=== PATIENT | female | born 1940 | race Caucasian/White ===

== ENCOUNTER 2021-05-28 16:50 | Emergency (ER) | payer MEDICARE ==
--- NOTE | 2021-05-28 17:29 | EDM.PDOC ---
ED HPI GENERAL MEDICAL PROBLEM - General Chief Complaint: Abdominal Pain Stated Complaint: AORTIC Time Seen by Provider: 05/28/21 17:09 Source of Information: Reports: Patient, RN Notes Reviewed History Limitations: Reports: No Limitations - History of Present Illness INITIAL COMMENTS - FREE TEXT/NARRATIVE: 80-year-old female presents emergency department day complaint of epigastric pain, she was initially evaluated by clinic provider Morelia Sanchez who did contact me and was concerned about aortic dissection asked her for her to be evaluated in the emergency department. She states this pain has been ongoing for a month she notices the pain gets worse after she drinks milk she has no nausea no vomiting no back pain no shortness of breath the pain is predominantly in the left upper quadrant area where she notices it more. No history of tobacco use - Related Data Allergies Allergy/AdvReac Type Severity Reaction Status Date / Time KATHRYN Inhibitors Allergy Cough Verified 05/28/21 17:17 codeine Allergy Hives Verified 05/28/21 17:17 Home Meds: Home Meds Amitriptyline [Elavil] 1 tab PO BEDTIME 05/28/21 [History] Ferrous Sulfate [Iron] 1 tab PO DAILY 05/28/21 [History] Magnesium Oxide [Magnesium] 1 tab PO DAILY 05/28/21 [History] Montelukast [Singulair] 1 tab PO BEDTIME 05/28/21 [History] Potassium Gluconate 1 tab PO DAILY 05/28/21 [History] Telmisartan [Micardis] 1 tab PO DAILY 05/28/21 [History] Past Medical History Cardiovascular History: Reports: Hypertension Social & Family History - Tobacco Use Tobacco Use Status *Q: Never Tobacco User ED ROS GENERAL - Review of Systems Review Of Systems: See Below Constitutional: Reports: No Symptoms HEENT: Reports: No Symptoms Respiratory: Reports: No Symptoms Cardiovascular: Reports: No Symptoms GI/Abdominal: Reports: Abdominal Pain. Denies: Constipation, Diarrhea, Nausea, Vomiting ED EXAM, GI/ABD - Physical Exam Exam: See Below Text/Narrative:: Bedside ultrasound performed I did evaluate the aorta is approximately 2.3 cm it is palpable with deep palpation however she is a thin elderly woman. I do not appreciate any significant tenderness to palpation on the abdomen Exam Limited By: No Limitations General Appearance: Alert, WD/WN, No Apparent Distress Respiratory/Chest: No Respiratory Distress, Lungs Clear, Normal Breath Sounds, No Accessory Muscle Use, Chest Non-Tender Cardiovascular: Regular Rate, Rhythm, No Murmur GI/Abdominal Exam: Normal Bowel Sounds, Soft, Non-Tender, No Distention, No Abnormal Bruit Course - Vital Signs Last Recorded V/S: Last Vital Signs Temp 98.6 F 05/28/21 17:12 Pulse 69 05/28/21 17:12 Resp 14 05/28/21 17:12 BP 180/95 H 05/28/21 17:12 Pulse Ox 98 05/28/21 17:12 - Orders/Labs/Meds Labs: Laboratory Tests 05/28/21 05/28/21 05/28/21 Range/Units 17:39 17:39 17:39 WBC 7.0 (4.5-11.0) K/uL RBC 4.25 (3.30-5.50) M/uL Hgb 12.8 (12.0-15.0) g/dL Hct 38.4 (36.0-48.0) % MCV 90 (80-98) fL MCH 30 (27-31) pg MCHC 33 (32-36) % Plt Count 280 (150-400) K/uL Neut % (Auto) 66.5 H (36-66) % Lymph % (Auto) 22.4 L (24-44) % Dewitt % (Auto) 9.3 H (2-6) % Eos % (Auto) 1.4 L (2-4) % Baso % (Auto) 0.4 (0-1) % Sodium 136 L (140-148) mmol/L Potassium 3.7 (3.6-5.2) mmol/L Chloride 100 (100-108) mmol/L Carbon Dioxide 28 (21-32) mmol/L Anion Gap 11.7 (5.0-14.0) mmol/L BUN 21 H (7-18) mg/dL Creatinine 1.0 (0.6-1.0) mg/dL Est Cr Clr Drug Dosing 39.39 mL/min Estimated GFR (MDRD) 53 L (>60) Glucose 100 (74-106) mg/dL Lactic Acid 0.6 (0.4-2.0) mmol/L Calcium 9.8 (8.5-10.1) mg/dL Total Bilirubin 0.5 (0.2-1.0) mg/dL AST 20 (15-37) U/L ALT 24 (12-78) U/L Alkaline Phosphatase 78 (46-116) U/L Total Protein 6.5 (6.4-8.2) g/dL Albumin 3.7 (3.4-5.0) g/dL Globulin 2.8 (2.3-3.5) g/dL Albumin/Globulin Ratio 1.3 (1.2-2.2) Departure - Departure Time of Disposition: 18:11 Disposition: Home, Self-Care 01 Condition: Fair Clinical Impression: Abdominal pain Qualifiers: Abdominal location: left upper quadrant Qualified Code(s): R10.12 - Left upper quadrant pain - Discharge Information Instructions: Abdominal Pain, Adult, [id number] Referrals: Morelia Sanchez PA-C [Primary Care Provider] - Forms: ED Department Discharge Additional Instructions: Try cutting out dairy products for the next couple days, monitor your pain symptoms then reintroduced milk to see if this exacerbates the pain, please followup with your primary care provider in 3-5 days if not better, please call return to the emergency department with worsening of symptoms. Sepsis Event Note (ED) - Evaluation Sepsis Screening Result: No Definite Risk - Focused Exam Vital Signs: Vital Signs Temp Pulse Resp BP Pulse Ox 05/28/21 17:12 98.6 F 69 14 180/95 H 98 - Assessment/Plan Plan: Assessment Acuity = acute Site and laterality = left upper quadrant pain Etiology = suspicious for lactose intolerance Manifestations = none Location of injury = Home Lab values = CBC CMP lactic acid all within normal limits Plan She is going to do a food journal cut out all dairy products and then reintroduced to see if she can reproduce the pain she has cut back over the last 7 days which has helped significantly on her pain control follow-up primary care 3 to 5 days if not better This note was dictated using [employer] voice recognition software please call with any questions on syntax or grammar.
== END 2021-05-28 18:42 | disposition home or self-care (01) ==
LOC: JP.ED 16:50
DX: R10.12 Left upper quadrant pain (principal); R10.13 Epigastric pain; I10 Essential (primary) hypertension; Z88.5 Allergy status to narcotic agent; Z88.8 Allergy status to other drugs, medicaments and biological substances; Z79.899 Other long term (current) drug therapy
CPT/HCPCS: 36415; 80053; 83605; 85025; 99284